=== PATIENT | female | born 1965 | race Two or more races ===

== ENCOUNTER 2019-10-17 12:20 | Emergency (ER) | payer OTHER ==
[~2019-10-17] VITALS: Ht 149.9 cm; Wt 78.2 kg
--- NOTE | 2019-10-17 13:55 | NUR ---
[employer]: PT TO ROOM FROM LOBBY
--- NOTE | 2019-10-17 14:09 | NUR ---
PT AMBULATES WELL TO BATHROOM INDEPENDENTLY FOR UA SPECIMEN. NAD NOTED AT THIS TIME. AWAITING PROVIDER ASSESSMENT.
--- NOTE | 2019-10-17 14:36 | NUR ---
US AT BS. NAD NOTED AT THIS TIME. UA SENT.
[2019-10-17 14:47] LABS: BASOPHILS # (AUTO) 0.02 x10^3/uL (0-0.1); BASOPHILS % (AUTO) 0 % (0-1); EOSINOPHILS # (AUTO) 0.08 x10^3/uL (0-0.4); EOSINOPHILS % (AUTO) 2 % (1-7); LYMPHOCYTES # (AUTO) 2.23 x10^3/uL (1-3.4); LYMPHOCYTES % (AUTO) 40 % (22-44); MD NO; MEAN CORPUSCULAR HGB CONC 33.8 g/dL (32.4-35.8); MEAN CORPUSCULAR VOLUME 94.8 fL (80-100); MONOCYTES # (AUTO) 0.56 x10^3/uL (0.2-0.8); MONOCYTES % (AUTO) 10 % (2-9); NEUTROPHILS # (AUTO) 2.66 x10^3/uL (1.8-6.8); NEUTROPHILS % (AUTO) 48 % (42-75); PLATELET COUNT 292 x10^3/uL (130-400); RED BLOOD COUNT 4.69 x10^6/uL (3.82-5.3); RED CELL DISTRIBUTION WIDTH 13.9 % (9.6-15.2)
[2019-10-17 14:52] LABS: ALANINE AMINOTRANSFERASE 33 U/L (12-78); ALBUMIN 3.4 g/dL (3.4-5.0); ANION GAP 8 mmol/L (5-15); CALCIUM 8.4 mg/dL (8.5-10.1); CHLORIDE 108 mmol/L (98-107); CREATININE 0.55 mg/dL (0.55-1.02)
[2019-10-17 14:56] LABS: MICROSCOPIC AUTO
[2019-10-17 14:57] LABS: ALKALINE PHOSPHATASE 150 U/L (45-117); BILIRUBIN,TOTAL 0.4 mg/dL (0.2-1.0); TOTAL PROTEIN 7.4 g/dL (6.4-8.2)
[2019-10-17 14:58] LABS: CULTURE INDICATED? NO
== END 2019-10-17 16:17 | disposition home or self-care (01) ==
LOC: MERGE 15:35 → ED 15:35
DX: R10.11 Right upper quadrant pain (principal)
CPT/HCPCS: 36415; 76700; 80053; 81001; 83690; 84703; 85025; 99284